=== PATIENT | male | born 1965 | race Caucasian/White ===

== ENCOUNTER 2016-05-07 14:12 | Emergency (ER) | payer SELFPAY ==
[~2016-05-07] VITALS: Ht 182.9 cm; Wt 83.0 kg
[~2016-05-07 14:12] MED LIST: Claritin,Alavart PO; Ecotrin PO; FLEXERIL10 MG PO; MOTRIN600 MG PO
[2016-05-07 14:21] VITALS: BP 129/87
== END 2016-05-07 15:35 | disposition left against medical advice (07) ==
LOC: EME 14:12
DX: Z20.3 Contact with and (suspected) exposure to rabies (principal)
CPT/HCPCS: 99281; 99284

== ENCOUNTER → 2016-08-17 | Outpatient (CLI) | payer OTHER | END | disposition home or self-care (01) | LOC: RAD 07-14 13:00 | DX: R19.09 Other intra-abdominal and pelvic swelling, mass and lump (principal) | CPT/HCPCS: 76882 ==